=== PATIENT | female | born 1985 | race Hispanic/Latino ===

== ENCOUNTER 2024-03-20 22:58 | Emergency (ER) | payer OTHER ==
[~2024-03-20] VITALS: Ht 157.5 cm; Wt 104.3 kg
[2024-03-20 23:10] VITALS: TEMP 98.1
[2024-03-21] MEDS ORDERED: BACITRACIN ZINC 0.9GM TP ONE (00:17)
[2024-03-21] MEDS: BACITRACIN ZINC 0.9GM TP SCH (00:25)
[2024-03-21 00:30] VITALS: PULSE 98; RESP 16; O2SAT 100
== END 2024-03-21 00:33 | disposition home or self-care (01) ==
LOC: ER 23:05
DX: T25.112A Burn of first degree of left ankle, initial encounter (principal); T25.122A Burn of first degree of left foot, initial encounter; S80.01XA Contusion of right knee, initial encounter; W01.0XXA Fall on same level from slipping, tripping and stumbling without subsequent striking against object, initial encounter; Y93.01 Activity, walking, marching and hiking; X10.2XXA Contact with fats and cooking oils, initial encounter; Y99.0 Civilian activity done for income or pay; I10 Essential (primary) hypertension
CPT/HCPCS: 99283